=== PATIENT | female | born 1980 | race Two or more races ===

== ENCOUNTER 2024-02-13 21:26 | Emergency (ER) | payer OTHER ==
[~2024-02-13] VITALS: Ht 172.7 cm; Wt 79.4 kg
[2024-02-13] MEDS ORDERED: VASOTEC10 MG PO (21:51)
[2024-02-13] MEDS ORDERED: CEFTRIAXONE SODIUM 2,000 MG VIAL ONE (22:25)
[2024-02-13 22:30] LABS: HEMATOCRIT 38.3 % (36.0-45.00); HEMOGLOBIN 13.3 g/dL (12.0-15.00); MEAN CELL VOLUME 91.7 fL (80.00-100.00); MEAN CORPUSCULAR HEMOGLOBIN 31.8 pg (27.00-32.0); MEAN CORPUSCULAR HGB CONC 34.7 g/dl (32.0-36.0); PLATELET COUNT 293 K/uL (150-450); RED BLOOD COUNT 4.18 M/uL (4.00-6.00); RED CELL DISTRIBUTION WIDTH 12.8 % (11.5-14.5)
[2024-02-13] MEDS ORDERED: AZITHROMYCIN 500 MG TABLET PO ONE ×2 (22:45→23:19)
[2024-02-13] MEDS ORDERED: CEFTRIAXONE SODIUM 2,000 MG in 0.9 % SODIUM CHLORIDE 100 ML IV ONE (22:45)
[2024-02-13 22:48] LABS: CALCIUM 10.3 mg/dL (8.5-10.1); CREATININE SERUM 1.18 mg/dL (0.55-1.02); GFR 50.23; POTASSIUM 3.71 mEq/L (3.5-5.1)
[2024-02-13 23:12] LABS: PH,URINE 5.5 (5.0-8.0); URINE APPEARANCE Cloudy; URINE BILIRRUBIN Negative (NEGATIVE); URINE BLOOD Small; URINE COLOR Dark Yellow; URINE GLUCOSE Negative (NEGATIVE); URINE LEUKOCYTE Moderate; URINE NITRATE Negative; URINE PROTEIN 30 (NEGATIVE)
[2024-02-13 23:16] LABS: URINE BACTERIA 1857.2 uL (0.0-1933); URINE EPITHELIAL CELLS 92.6 uL (0.0-38.8); URINE RBC 55.2 uL (0.0-20.8); URINE WBC 790.5 uL (0.0-23.2)
== END 2024-02-14 00:02 | disposition home or self-care (01) ==
LOC: ER 21:27
PROVIDERS: General Practice
DX: N76.0 Acute vaginitis (principal); I10 Essential (primary) hypertension